=== PATIENT | male | born 1945 | race Caucasian/White ===

== ENCOUNTER 2017-12-21 15:37 | Emergency (ER) | payer OTHER, MEDICARE ==
--- NOTE | 2017-12-21 16:03 | EDM.PDOC ---
<Felice Mendoza J - Last Filed: 12/21/17 16:00> ED HPI GENERAL MEDICAL PROBLEM - General Chief Complaint: Upper Extremity Injury/Pain Stated Complaint: PER PT HE HE TORE HIS RT BICEPS Time Seen by Provider: 12/21/17 15:58 - History of Present Illness INITIAL COMMENTS - FREE TEXT/NARRATIVE: HISTORY AND PHYSICAL: History of present illness: Patient 72-year-old white male who presents with a concern of biceps injury that occurred yesterday when he was lifting he now is pain and obvious bicep injury with evidence of rupture Review of systems: As per history of present illness and below otherwise all systems reviewed and negative. Past medical history: As per history of present illness and as reviewed below otherwise noncontributory. Surgical history: As per history of present illness and as reviewed below otherwise noncontributory. Social history: No reported history of drug or alcohol abuse. Family history: As per history of present illness and as reviewed below otherwise noncontributory. Physical exam: HEENT: Atraumatic, normocephalic, pupils reactive, negative for conjunctival pallor or scleral icterus, mucous membranes moist, throat clear, neck supple, nontender, trachea midline. Lungs: Clear to auscultation, breath sounds equal bilaterally, chest nontender. Heart: S1S2, regular, negative for clicks, rubs, or JVD. Abdomen: Soft, nondistended, nontender. Negative for masses or hepatosplenomegaly. Negative for costovertebral tenderness. Pelvis: Stable nontender. Genitourinary: Deferred. Rectal: Deferred. Extremities: Patient has tenderness to his biceps with inability to significantly flex at the bicep with obvious injury. Neurovascular exam is unremarkable he denies any other injury or concern Neuro: Awake, alert, oriented. Cranial nerves II through XII unremarkable. Cerebellum unremarkable. Motor and sensory unremarkable throughout. Exam nonfocal. Diagnostics: None Therapeutics: None Impression: #1 acute biceps injury Definitive disposition and diagnosis as appropriate pending reevaluation and review of above. Right bicep Pain Score (Numeric/FACES): 1 - Related Data Allergies Allergy/AdvReac Type Severity Reaction Status Date / Time codeine Allergy Breast Verified 12/21/17 15:53 Tenderness Home Meds: Home Meds . [Unable to Verify Home Med List] 12/21/17 [History] Past Medical History Cardiovascular History: Reports: High Cholesterol, Hypertension Musculoskeletal History: Reports: Arthritis, Other (See Below) Other Musculoskeletal History: carpal tunnel bilateral hands Social & Family History - Family History Family Medical History: Noncontributory - Tobacco Use Smoking Status *Q: Never Smoker Second Hand Smoke Exposure: No - Caffeine Use Caffeine Use: Reports: None - Recreational Drug Use Recreational Drug Use: No Review of Systems - Review of Systems Review Of Systems: ROS reveals no pertinent complaints other than HPI. ED EXAM, GENERAL - Physical Exam Exam: See Below (See dictation) Course - Vital Signs Last Recorded V/S: Last Vital Signs Temp 99.0 F 12/21/17 15:55 Pulse 96 12/21/17 15:55 Resp 16 12/21/17 15:55 BP 152/90 H 12/21/17 15:55 Pulse Ox 95 12/21/17 15:55 Departure - Departure Time of Disposition: 16:02 Disposition: Home, Self-Care 01 Condition: Good Clinical Impression: Injury of tendon of biceps - Discharge Information Referrals: PCP,None [Primary Care Provider] - Forms: ED Department Discharge Additional Instructions: The following information is given to patients seen in the emergency department who are being discharged to home. This information is to outline your options for follow-up care. We provide all patients seen in our emergency department with a follow-up referral. The need for follow-up, as well as the timing and circumstances, are variable depending upon the specifics of your emergency department visit. If you don't have a primary care physician on staff, we will provide you with a referral. We always advise you to contact your personal physician following an emergency department visit to inform them of the circumstance of the visit and for follow-up with them and/or the need for any referrals to a consulting specialist. The emergency department will also refer you to a specialist when appropriate. This referral assures that you have the opportunity for followup care with a specialist. All of these measure are taken in an effort to provide you with optimal care, which includes your followup. Under all circumstances we always encourage you to contact your private physician who remains a resource for coordinating your care. When calling for followup care, please make the office aware that this follow-up is from your recent emergency room visit. If for any reason you are refused follow-up, please contact the [facility] emergency department at and asked to speak to the emergency department charge nurse. JERMAINE [facility] - Orthopedic Clinic Professional Building [address] [place] [address], [address] [place] [address] Follow-up orthopedic clinic above called to schedule appointment return as needed as discussed <Simran Espinoza E - Last Filed: 12/21/17 16:18> ED HPI GENERAL MEDICAL PROBLEM - History of Present Illness INITIAL COMMENTS - FREE TEXT/NARRATIVE: Dr Scott was consulted on this case. She would like to see the patient next week for evaluation. Will place patient in sling. D/c to home
== END 2017-12-21 16:56 | disposition home or self-care (01) ==
LOC: MW.ED 15:37
DX: S49.91XA Unspecified injury of right shoulder and upper arm, initial encounter (principal); I10 Essential (primary) hypertension; Z88.5 Allergy status to narcotic agent; X50.0XXA Overexertion from strenuous movement or load, initial encounter
CPT/HCPCS: 99283

== ENCOUNTER 2019-09-20 09:54 | Day surgery (SDC) | payer MEDICARE, OTHER ==
[~2019-09-20 09:54] MED LIST: Bupivacaine 0.5% 10 ML SDV ONE; Ketorolac 30 MG/ML SDV ONE; Lactated Ringers 1,000 ML IV SCH; Midazolam 1 MG/ML 2 ML SDV ONE; Ondansetron 4 MG/2 ML SDV ONE; Propofol 200 MG/20 ML SDV ONE; ceFAZolin 2 GM in Premix Bag 1 BAG IV SCH; fentaNYL 100 MCG/2 ML SDV ONE
--- NOTE | 2019-09-20 10:27 | PCM.PREANE ---
Preanesthetic Assessment - Anesthesia/Transfusion/Family Hx Anesthesia History: Prior Anesthesia Without Reaction Family History of Anesthesia Reaction: No Transfusion History: No Prior Transfusion(s) - Review of Systems General: No Symptoms Pulmonary: No Symptoms Cardiovascular: No Symptoms Gastrointestinal: No Symptoms Neurological: No Symptoms Other: Reports: None - Physical Assessment NPO Status Date: 09/19/19 Height: 5 ft 10 in Weight: 92.986 kg ASA Class: 2 Mental Status: Alert & Oriented x3 Airway Class: Mallampati = 2 Dentition: Reports: Normal Dentition ROM/Head Extension: Full Lungs: Clear to Auscultation, Normal Respiratory Effort Cardiovascular: Regular Rate, Regular Rhythm - Allergies Allergies/Adverse Reactions: Allergies Allergy/AdvReac Type Severity Reaction Status Date / Time codeine Allergy Nausea and Verified 09/18/19 14:31 Vomiting - Blood Blood Available: No - Anesthesia Plan Pre-Op Medication Ordered: None - Acknowledgements Anesthesia Type Planned: MAC Pt an Appropriate Candidate for the Planned Anesthesia: Yes Alternatives and Risks of Anesthesia Discussed w Pt/Guardian: Yes Pt/Guardian Understands and Agrees with Anesthesia Plan: Yes Additional Comments: PMH: gout/hyperuricemia, aortic stenosis- mild by TTE 2 days ago PLAN: mac PreAnesthesia Questionnaire HEENT History: Reports: Other (See Below) Other HEENT History: has upper denture Cardiovascular History: Reports: High Cholesterol, Hypertension Gastrointestinal History: Reports: Other (See Below) Other Gastrointestinal History: occasional heartburn, takes Rolaids Musculoskeletal History: Reports: Fracture, Gout, Other (See Below) Other Musculoskeletal History: hx of torn right Biceps Tendon (not repaired), hx of fx toes - Past Surgical History Head Surgeries/Procedures: Reports: None GI Surgical History: Reports: Other (See Below) Other GI Surgeries/Procedures: Cauterization of Hemorrhoids Male Surgical History: Reports: Vasectomy - SUBSTANCE USE Smoking Status *Q: Never Smoker Recreational Drug Use History: No - HOME MEDS Home Medications: Home Meds Chlorthalidone 25 mg PO QAM 09/18/19 [History] Losartan Potassium 100 mg PO QAM 09/18/19 [History] Sildenafil Citrate 60 mg PO ASDIRECTED PRN 09/18/19 [History] amLODIPine Besylate [Amlodipine Besylate] 10 mg PO QAM 09/18/19 [History] atorvaSTATin Calcium [Atorvastatin Calcium] 80 mg PO DAILY 09/18/19 [History] - CURRENT (IN HOUSE) MEDS Current Meds: Current Medications Cefazolin Sodium/Dextrose 2 gm (/ Premix) 50 mls @ 100 mls/hr IV ONCALL [facility] Lactated Ringer's (Ringers, Lactated) 1,000 mls @ 100 mls/hr IV ASDIRECTED [facility] Last Admin: 09/20/19 10:22 Dose: 100 mls/hr Discontinued Medications Bupivacaine HCl (Sensorcaine-Mpf 0.5%) Confirm Administered Dose 10 ml .ROUTE .STK-MED ONE Stop: 09/20/19 08:01 Fentanyl (Sublimaze) Confirm Administered Dose 100 mcg .ROUTE .STK-MED ONE Stop: 09/20/19 07:21 Ketorolac Tromethamine (Toradol) Confirm Administered Dose 30 mg .ROUTE .STK- MED ONE Stop: 09/20/19 07:20 Midazolam HCl (Versed 1 Mg/Ml) Confirm Administered Dose 2 mg .ROUTE .STK-MED ONE Stop: 09/20/19 07:21 Ondansetron HCl (Zofran) Confirm Administered Dose 4 mg .ROUTE .STK-MED ONE Stop: 09/20/19 07:20 Propofol (Diprivan 20 Ml) Confirm Administered Dose 200 mg .ROUTE .STK-MED ONE Stop: 09/20/19 07:20
[2019-09-20] MEDS ORDERED: ceFAZolin 1 GM Vial ONE ×2 (10:36→12:40)
[2019-09-20] MEDS ORDERED: Sodium Chloride 0.9% 20 ML ONE ×2 (10:36→12:40)
--- NOTE | 2019-09-20 11:45 | PCM.POSTAN ---
POST ANESTHESIA ASSESSMENT - MENTAL STATUS Mental Status: Alert, Oriented - VITAL SIGNS Vital Signs: Last Vital Signs Temp 36.5 C 09/20/19 11:33 Pulse 67 09/20/19 11:39 Resp 17 09/20/19 11:39 BP 115/65 09/20/19 11:39 Pulse Ox 96 09/20/19 11:39 - RESPIRATORY Respiratory Status: Respiratory Rate WNL - CARDIOVASCULAR CV Status: Pulse Rate WNL - GASTROINTESTINAL GI Status: No Symptoms - POST OP HYDRATION Hydration Status: Adequate & Stable
--- NOTE | 2019-09-20 12:32 | PCM48HPAN ---
Post Anesthesia Note - EVALUATION WITHIN 48HRS OF ANESTHETIC Vital Signs in Normal Range: Yes Patient Participated in Evaluation: Yes Respiratory Function Stable: Yes Airway Patent: Yes Cardiovascular Function Stable: Yes Hydration Status Stable: Yes Pain Control Satisfactory: Yes Nausea and Vomiting Control Satisfactory: Yes Mental Status Recovered: Yes Vital Signs: Last Vital Signs Temp 97.7 F 09/20/19 11:33 Pulse 60 09/20/19 11:44 Resp 14 09/20/19 11:44 BP 112/60 09/20/19 11:44 Pulse Ox 97 09/20/19 11:44
[2019-09-20] MEDS ORDERED: fentaNYL 100 MCG/2 ML SDV ONE (12:43)
--- NOTE | 2019-09-20 14:26 | OR ---
SURGEON: Jose Valdivia DATE OF PROCEDURE: 09/20/2019 PREOPERATIVE DIAGNOSIS: Right carpal tunnel syndrome. POSTOPERATIVE DIAGNOSIS: Right carpal tunnel syndrome. PROCEDURE: Right carpal tunnel release. PRIMARY SURGEON: Jose Valdivia DO. ANESTHESIA: MAC. FLUID: Lactated Ringer's solution. ESTIMATED BLOOD LOSS: 5 mL. COMPLICATION: None. SPECIMEN: None. DISCHARGE DISPOSITION: Stable to PACU. HISTORY AND INDICATIONS FOR THE PROCEDURE: The patient was seen preoperatively in the clinic. He had confirmed carpal tunnel syndrome with appropriate symptoms. Risks and goals of the procedure were explained to the patient. Informed consent was obtained. DETAILS OF PROCEDURE: The patient was seen preoperatively by myself and the Anesthesia staff in the preoperative holding area where the operative site was marked. He was brought to the operative suite by Anesthesia staff where MAC anesthesia was administered. A well-padded tourniquet was placed on the right forearm. The right upper extremity was then prepped and draped in a sterile manner. Time-out was called identifying the correct patient, the correct procedure, the correct site, and that antibiotics had been given within appropriate period of time. The right upper extremity was exsanguinated, tourniquet was raised to 200 mmHg. A line was drawn proximal to Mcduffie's cardinal line in line with the 1st metacarpal and a line was then made proximal 1.5 cm in line with the radial border of the 4th digit. I then infiltrated with Sensorcaine in the area as well as in the area of the deep palmar fascia proximally and distally the transverse carpal ligament. I then made an incision and then used a self- retaining retractor. I did remove a small amount of subcutaneous fat using pickups and the knife. I spread the fat over the transverse carpal ligament for visualization, then incised the transverse carpal ligament with a 15 blade. I then went above and below the transverse carpal ligament with the Metzenbaum's and then under direct visualization using Sindy divided the deep palmar fascia proximally and distally the transverse carpal ligament using the Metzenbaum's and tenotomies. After the median nerve was confirmed to be free, I then applied my dexamethasone, more local, and then closed with 3-0 nylon horizontal mattress sutures followed by Betadine-soaked Adaptic, fluffs, and Azeem wrap. The tourniquet was let down after closure. The patient was then allowed to awaken from MAC anesthesia and taken to the PACU in stable condition. [id number] / MODL /[id number]
== END 2019-09-20 12:35 | disposition home or self-care (01) ==
LOC: MW.SDS 09:54
PROVIDERS: ATTEND Orthopaedic Surgery
DX: G56.01 Carpal tunnel syndrome, right upper limb (principal); M10.9 Gout, unspecified; I10 Essential (primary) hypertension; E78.00 Pure hypercholesterolemia, unspecified; Z79.899 Other long term (current) drug therapy; Z88.5 Allergy status to narcotic agent
CPT/HCPCS: 64721; J0690; J1885; J2250; J2405; J2704; J3010; J3490; J7120

== ENCOUNTER 2022-04-23 09:17 | Emergency (ER) | payer MEDICARE ==
[2022-04-23] MEDS ORDERED: Sodium Chloride 0.9% 2.5 ML Syringe FLUSH PRN (09:56)
[2022-04-23] MEDS ORDERED: Sodium Chloride 0.9% 10 ML Syringe FLUSH PRN (09:56)
[2022-04-23] MEDS ORDERED: Alum Hydro/Mag Hydro/Simeth XS 15 ML, Lidocaine 2% 5 ML PO ONE ×2 (10:02)
[2022-04-23 10:47] LABS: CARBON DIOXIDE,CO2 27.6 mmol/L (21.0-32.0); POTASSIUM,K 3.8 mmol/L (3.5-5.1)
[2022-04-23 11:02] LABS: LIPASE 132 U/L (73-393)
[2022-04-23] MEDS ORDERED: Sodium Chloride 0.9% 500 ML IV SCH (12:15)
[2022-04-23] MEDS ORDERED: Iopamidol 755 MG/ML 500 ML Multipack Bottle IVPUSH STA (14:38)
== END 2022-04-23 14:09 | disposition left against medical advice (07) ==
LOC: MW.ED 09:17
DX: K81.0 Acute cholecystitis (principal); E78.00 Pure hypercholesterolemia, unspecified; I10 Essential (primary) hypertension; Z79.82 Long term (current) use of aspirin; Z79.02 Long term (current) use of antithrombotics/antiplatelets; Z95.1 Presence of aortocoronary bypass graft; Z88.5 Allergy status to narcotic agent; Z79.899 Other long term (current) drug therapy; Z20.822 Contact with and (suspected) exposure to COVID-19
CPT/HCPCS: 36415; 71275; 72191; 74175; 80053; 81001; 83605; 83690; 84484; 85025; 93005; 96360; 99284; A9270; J3490; J7040; Q9967; U0002; 93010; 99285

== ENCOUNTER 2022-08-27 15:27 | Emergency (ER) | payer MEDICARE ==
[2022-08-27] MEDS ORDERED: Bacitracin Oint 1 GM U/D Packet TOP ONE (17:34)
== END 2022-08-27 17:58 | disposition home or self-care (01) ==
LOC: MW.ED 15:27
DX: S01.01XA Laceration without foreign body of scalp, initial encounter (principal); E78.00 Pure hypercholesterolemia, unspecified; I10 Essential (primary) hypertension; Z88.0 Allergy status to penicillin; Z88.5 Allergy status to narcotic agent; Z79.899 Other long term (current) drug therapy; W07.XXXA Fall from chair, initial encounter
CPT/HCPCS: 70450; 70450-26; 99283

== ENCOUNTER 2022-09-06 15:52 | Emergency (ER) | payer MEDICARE | END 2022-09-06 16:27 | disposition left against medical advice (07) | LOC: MW.ED 15:52 | DX: Z53.21 Procedure and treatment not carried out due to patient leaving prior to being seen by health care provider (principal) ==

== ENCOUNTER 2024-11-20 08:49 | Day surgery (SDC) | payer MEDICARE ==
[~2024-11-20 08:49] MED LIST changes: +Albuterol 0.083% 2.5 MG/3 ML Neb Soln NEB PRN; +Bupivacaine 0.25% 30 ML SDV ONE; -Bupivacaine 0.5% 10 ML SDV ONE; +HYDROmorphone 1 MG/ML Syringe IVPUSH PRN; -Ketorolac 30 MG/ML SDV ONE; -Lactated Ringers 1,000 ML IV SCH; +Metoclopramide 10 MG/2 ML SDV IVPUSH PRN; -Midazolam 1 MG/ML 2 ML SDV ONE; +Morphine 2 MG/ML SYRINGE IVPUSH PRN; +Naloxone 0.4 MG/ML SDV IVPUSH PRN; +Ondansetron 4 MG/2 ML SDV IVPUSH PRN; -Ondansetron 4 MG/2 ML SDV ONE; +Phenylephrine HCl In 0.9% NaCl 1 MG/10 ML Syringe IVPUSH PRN; -Propofol 200 MG/20 ML SDV ONE; -ceFAZolin 2 GM in Premix Bag 1 BAG IV SCH; +ceFAZolin 2 GM in Sodium Chloride 0.9% 50 ML IV ONE; -fentaNYL 100 MCG/2 ML SDV ONE; +fentaNYL 50 MCG/ML SDV IVPUSH PRN
[2024-11-20] MEDS: Lactated Ringers 1,000 ML IV SCH (09:24)
[2024-11-20] MEDS ORDERED: Lidocaine 1% 5 ML VIAL ONE (09:30)
[2024-11-20] MEDS ORDERED: Midazolam 1 MG/ML 2 ML SDV ONE (09:30)
[2024-11-20] MEDS ORDERED: Lidocaine 2% 5 ML SDV ONE (09:32)
== END 2024-11-20 11:05 | disposition home or self-care (01) ==
LOC: MW.SDS 08:49
PROVIDERS: ATTEND Orthopaedic Surgery
DX: G56.02 Carpal tunnel syndrome, left upper limb (principal); I10 Essential (primary) hypertension; I25.10 Atherosclerotic heart disease of native coronary artery without angina pectoris; E66.9 Obesity, unspecified; Z79.82 Long term (current) use of aspirin; Z88.5 Allergy status to narcotic agent; Z68.30 Body mass index [BMI] 30.0-30.9, adult; Z88.1 Allergy status to other antibiotic agents; Z79.899 Other long term (current) drug therapy
CPT/HCPCS: 64721; J0665; J2003; J2250; J7120; 01810